=== PATIENT | male | born 1970 | race Caucasian/White ===

== ENCOUNTER 2019-01-26 11:08 | Emergency (ER) | payer OTHER ==
[2019-01-26] MEDS ORDERED: Sodium Chloride 0.9% 1,000 ML IV ONE (11:44)
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
== END 2019-01-26 12:34 | disposition home or self-care (01) ==
LOC: JD.ED 11:08
DX: R55 Syncope and collapse (principal)
CPT/HCPCS: 36415; 80053; 80306; 81001; 85007; 85027; 99284; G0480; J7040; 99283

== ENCOUNTER 2019-01-27 08:15 | Emergency (ER) | payer OTHER ==
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
[2019-01-27] MEDS ORDERED: ClonazePAM 1 MG Tab PO ONE (09:22)
[2019-01-27] MEDS ORDERED: Atenolol 50 MG Tab PO ONE (11:39)
[2019-01-27] MEDS ORDERED: chlordiazePOXIDE 25 MG Cap PO ONE (11:39)
[2019-01-27] MEDS ORDERED: Thiamine 100 MG Tab PO ONE (11:41)
[2019-01-27] MEDS ORDERED: Folic Acid 1 MG Tab PO ONE (11:41)
[2019-01-27] MEDS ORDERED: ClonazePAM 0.5 MG Tab PO ONE (14:48)
== END 2019-01-27 15:30 ==
LOC: JD.ED 08:15
DX: F41.9 Anxiety disorder, unspecified (principal); R44.3 Hallucinations, unspecified; F10.229 Alcohol dependence with intoxication, unspecified; Y90.7 Blood alcohol level of 200-239 mg/100 ml
CPT/HCPCS: 36415; 80306; 84443; 99285; A9270; G0480; 99283